=== PATIENT | female | born 1935 | race Caucasian/White ===

== ENCOUNTER → 2021-09-14 | Outpatient (CLI) | payer MEDICARE ==
[~2021-09-14] MED LIST: ACIDOPHILUS LA1 EACH PO; AMLODIPINE BESYL5 MG PO; FOLEY CATHETER1 EAC1; IBUPROFEN400 MG PO; MAGNESIUM OXID400 MG PO; MELOXICAM PO; NEXIUM40 MG PO; SELENIUM200 MC2 PO; ST. JOHN'S WOR150 MG; ST. JOHN'S WOR300 MG PO; TYLENOL WITH C1 EACH PO; VITAMIN A8000 UNIT PO; VITAMIN B COMP1 EACH PO; VITAMIN C500 M2 PO; VITAMIN E400 UNIT PO; ZOFRAN8 MG PO
== END ==
LOC: CT 07:24
PROVIDERS: ATTEND Emergency Medicine
DX: R26.81 Unsteadiness on feet (principal)
CPT/HCPCS: 70450; 71046

== ENCOUNTER → 2021-11-30 | Outpatient (CLI) | payer MEDICARE | LOC: CARD 08:36 | PROVIDERS: ATTEND Emergency Medicine | DX: H53.132 Sudden visual loss, left eye (principal) | CPT/HCPCS: 93880 ==

== ENCOUNTER → 2022-07-08 | Outpatient (CLI) | payer MEDICARE | LOC: RAD 10:45 | PROVIDERS: ATTEND Emergency Medicine | DX: R60.0 Localized edema (principal) | CPT/HCPCS: 93970 ==